=== PATIENT | female | born 1975 ===

== ENCOUNTER 2017-07-13 17:41 | Emergency (ER) | payer SELFPAY ==
[~2017-07-13] VITALS: Ht 162.6 cm; Wt 124.0 kg
[2017-07-13 19:02] VITALS: Ht 162.6 cm; Wt 124.0 kg
== END 2017-07-13 23:20 | disposition left against medical advice (07) ==
LOC: FTE 17:41
DX: Z53.21 Procedure and treatment not carried out due to patient leaving prior to being seen by health care provider (principal)